=== PATIENT | male | born 1980 | race Two or more races ===

== ENCOUNTER 2017-09-02 05:58 | Emergency (ER) | payer MEDICAID ==
[~2017-09-02] VITALS: Ht 167.6 cm; Wt 68.0 kg
[2017-09-02 06:25] VITALS: BP 153/93
== END 2017-09-02 08:23 | disposition home or self-care (01) ==
LOC: ER 06:09
DX: F20.9 Schizophrenia, unspecified (principal); F17.210 Nicotine dependence, cigarettes, uncomplicated; Z76.0 Encounter for issue of repeat prescription